=== PATIENT | female | born 1965 | race Caucasian/White ===

== ENCOUNTER 2018-11-09 07:32 | Inpatient (IN) | payer OTHER ==
[~2018-11-09 07:32] MED LIST: DESFLURANE 15 MIN; LIDOCAINE 2% (SDV) 5 ML INJ; PROPOFOL 200 MG INJ
[2018-11-09] MEDS: LACTATED RINGER'S 1,000 ML IV ×3 (08:09→20:46)
[2018-11-09] MEDS ORDERED: DIPHENHYDRAMINE 50 MG INJ IV (09:00)
[2018-11-09] MEDS ORDERED: METOCLOPRAMIDE 10 MG INJ IV (09:00)
[2018-11-09] MEDS ORDERED: FENTAnyl 50 MCG/ML VIAL IV ×3 (09:00)
[2018-11-09] MEDS ORDERED: HYDROmorphONE 1 MG/5 ML IV SYRINGE IV (09:00)
[2018-11-09] MEDS ORDERED: ALBUTEROL 0.083% (NEB) 2.5 MG/3 ML AMP HHN (09:00)
[2018-11-09] MEDS ORDERED: FENTAnyl 50 MCG/ML VIAL (09:23)
[2018-11-09] MEDS ORDERED: MIDAZOLAM 1 MG/ML 2 ML INJ (09:23)
[2018-11-09] MEDS ORDERED: morphine SULFATE/PF (10 MG/10 ML) INJ (09:27)
[2018-11-09] MEDS ORDERED: ROPIVACAINE 0.5 % 30 ML VIAL (09:41)
[2018-11-09] MEDS ORDERED: ROCURONIUM 50 MG INJ (11:44)
[2018-11-09] MEDS ORDERED: CEFAZOLIN 1 GM INJ (11:44)
[2018-11-09] MEDS ORDERED: SUCCINYLCHOLINE CHLORIDE 100 MG/5 ML SYG IV (11:44)
[2018-11-09] MEDS ORDERED: SUGAMMADEX SODIUM 200 MG/2 ML VIAL IV (11:44)
[2018-11-09] MEDS: ONDANSETRON 4 MG INJ IV (12:06)
[2018-11-09] MEDS: MEPERIDINE 25 MG INJ IV (12:07)
[2018-11-09] MEDS: HYDROmorphONE 1 MG/5 ML IV SYRINGE IV ×2 (12:08→12:15)
[2018-11-09] MEDS ORDERED: ONDANSETRON INJ 6 MG in DEXTROSE 5% 50 ML IVPB (12:30)
[2018-11-09] MEDS ORDERED: ZOLPIDEM 5 MG TAB PO (12:30)
[2018-11-09] MEDS ORDERED: DIPHENHYDRAMINE 50 MG CAP PO (12:30)
[2018-11-09] MEDS: KETOROLAC 30 MG INJ IV ×2 (13:21→18:46)
[2018-11-09] MEDS: CEFAZOLIN 1 GM/50 ML (PMX) 50 ML IVPB ×2 (14:00→20:46)
[2018-11-09] MEDS: HYDROCODONE/APAP (5/325) TAB PO (16:04)
[2018-11-09] MEDS: METOCLOPRAMIDE 10 MG TAB PO (18:00)
[2018-11-09] MEDS: traZODone 50 MG TAB PO (20:46)
[2018-11-09] MEDS: BUSPIRONE 5 MG TAB PO (20:46)
[2018-11-09] MEDS: ENOXAPARIN 30 MG/0.3 ML SYG SC (20:48)
[2018-11-10] MEDS: KETOROLAC 30 MG INJ IV ×4 (00:03→17:18)
[2018-11-10] MEDS: METOCLOPRAMIDE 10 MG TAB PO ×4 (00:03→17:18)
[2018-11-10] MEDS: CEFAZOLIN 1 GM/50 ML (PMX) 50 ML IVPB (05:06)
[2018-11-10] MEDS: LACTATED RINGER'S 1,000 ML IV (05:07)
[2018-11-10 05:41] LABS: ADD MAN DIFF? NO
[2018-11-10 05:43] LABS: BASOPHILS % 0.4 % (0.0-2.0); EOSINOPHILS # 0.2 10^3/ul (0.0-0.5); EOSINOPHILS % 1.9 % (0.0-7.0); HEMATOCRIT 27.8 % (37.0-47.0); HEMOGLOBIN 8.1 g/dl (12.0-16.0); LYMPHOCYTES # 2.5 10^3/ul (0.8-2.9); MEAN CORPUSCULAR HEMOGLOBIN 24.5 pg (29.0-33.0); MEAN CORPUSCULAR HGB CONC 29.1 g/dl (32.0-37.0); MEAN CORPUSCULAR VOLUME 84.2 fl (82.0-101.0); MEAN PLATELET VOLUME 9.3 fl (7.4-10.4); MONOCYTE # 0.6 10^3/ul (0.3-0.9); MONOCYTES % 7.2 % (0.0-11.0); NEUTROPHIL # 4.7 10^3/ul (1.6-7.5); NEUTROPHILS % 59.2 % (39.0-77.0); PLATELET COUNT 383 10^3/UL (140-415); RED CELL DISTRIBUTION WIDTH 15.7 % (11.5-14.5)
[2018-11-10 06:11] LABS: ANION GAP 5 (5-13); BLOOD UREA NITROGEN 6 mg/dl (7-20); CARBON DIOXIDE 26 mmol/L (21-31); CHLORIDE 110 mmol/L (97-110); CREATININE 0.73 mg/dl (0.44-1.00); SODIUM 141 mmol/L (135-144)
[2018-11-10] MEDS: SERTRALINE 100 MG TAB PO (09:07)
[2018-11-10] MEDS: BUSPIRONE 5 MG TAB PO ×3 (09:07→21:24)
[2018-11-10] MEDS: ENOXAPARIN 30 MG/0.3 ML SYG SC ×2 (09:19→21:29)
[2018-11-10] MEDS: HYDROCODONE/APAP (5/325) TAB PO ×2 (10:28→21:36)
[2018-11-10] MEDS ORDERED: SENNA TAB PO (10:30)
[2018-11-10] MEDS: SOD FERRIC GLUC COMPLX 125 MG in SOD CHLORIDE 0.9% 100 ML IVPB (14:13)
[2018-11-10] MEDS: traZODone 50 MG TAB PO (21:24)
[2018-11-10] MEDS: BISACODYL (EC) 5 MG TAB PO (21:32)
[2018-11-11] MEDS: KETOROLAC 30 MG INJ IV ×2 (00:15→06:00)
[2018-11-11] MEDS: METOCLOPRAMIDE 10 MG TAB PO ×4 (00:15→17:57)
[2018-11-11] MEDS: BUSPIRONE 5 MG TAB PO ×3 (08:52→21:32)
[2018-11-11] MEDS: SERTRALINE 100 MG TAB PO (08:52)
[2018-11-11] MEDS: ENOXAPARIN 30 MG/0.3 ML SYG SC (08:54)
[2018-11-11] MEDS ORDERED: ESTRADIOL VALERATE 20 MG/0.5 ML INJ IM (11:30)
[2018-11-11] MEDS: HYDROCODONE/APAP (5/325) TAB PO (11:34)
[2018-11-11] MEDS: SOD FERRIC GLUC COMPLX 125 MG in SOD CHLORIDE 0.9% 100 ML IVPB (12:22)
[2018-11-11] MEDS: ALPRAZOLAM 0.5 MG TAB PO (12:22)
[2018-11-11] MEDS: ESTRADIOL VALERATE 100 MG/5 ML INJ IM (13:44)
[2018-11-11] MEDS ORDERED: ALPRAZOLAM 0.5 MG TAB PO (21:00)
[2018-11-11] MEDS: traZODone 50 MG TAB PO (21:32)
[2018-11-12] MEDS: METOCLOPRAMIDE 10 MG TAB PO ×3 (00:08→12:02)
[2018-11-12] MEDS: HYDROCODONE/APAP (5/325) TAB PO ×2 (04:53→12:03)
[2018-11-12] MEDS: SERTRALINE 100 MG TAB PO (09:11)
[2018-11-12] MEDS: BUSPIRONE 5 MG TAB PO ×2 (09:11→12:02)
[2018-11-12] MEDS: ENOXAPARIN 40 MG/0.4 ML SYG SC (09:13)
[2018-11-12] MEDS: SOD FERRIC GLUC COMPLX 125 MG in SOD CHLORIDE 0.9% 100 ML IVPB ×2 (12:21→13:00)
== END 2018-11-12 14:41 | disposition home or self-care (01) | DRG 743 ==
LOC: REC 07:32 → MS1 12:41
PROC: 0UT90ZZ Resection of Uterus, Open Approach (ICD-10-PCS; principal; 2018-11-09 09:00)
PROC: 0UT70ZZ Resection of Bilateral Fallopian Tubes, Open Approach (ICD-10-PCS; 2018-11-09 09:00)
DX: D25.9 Leiomyoma of uterus, unspecified (principal); I10 Essential (primary) hypertension; E66.9 Obesity, unspecified; D64.9 Anemia, unspecified; N80.0 Endometriosis of uterus
CPT/HCPCS: 80051; 82565; 84520; 85025; 86850; 86900; 86901; 86920; 87086; 88305; 93005; J1380